=== PATIENT | female | born 1990 | race Caucasian/White ===

== ENCOUNTER 2020-04-10 18:31 | Emergency (ER) | payer OTHER ==
[~2020-04-10] VITALS: Ht 157.5 cm; Wt 55.3 kg
[2020-04-10 19:17] VITALS: Ht 157.5 cm; Wt 55.3 kg
[2020-04-10 20:49] VITALS: BP 111/78
== END 2020-04-10 20:49 | disposition home or self-care (01) ==
LOC: ED 18:31
DX: S09.8XXA Other specified injuries of head, initial encounter (principal); S50.11XA Contusion of right forearm, initial encounter; V43.52XA Car driver injured in collision with other type car in traffic accident, initial encounter; Y93.I9 Activity, other involving external motion; Y92.488 Other paved roadways as the place of occurrence of the external cause; Y99.8 Other external cause status